=== PATIENT | female | born 1950 | race Caucasian/White ===

== ENCOUNTER 2016-08-23 07:36 | Outpatient (CLI) | payer MEDICARE, OTHER ==
[~2016-08-23] VITALS: Ht 157.5 cm; Wt 81.8 kg
--- NOTE | ~2016-08-23 | CATH ---
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 3.0 X 20 Rebel inflated to 3.22mm Interventional Recommendations DAPT X 1 month Routine post Angioseal instructions Procedure Description The patient was brought to the diagnostic cardiac catheterization-EP laboratory in the fasting, non-sedated state. Informed consent was obtained in the written and verbal form after the risks and benefits were explained. The patient had no further questions and agreed to proceed. The planned puncture-incision site(s) were shaved and prepped with ChloraPrep and draped in the usual sterile manner. Conscious sedation, supplemental oxygen, and pain control medications were delivered by a registered nurse under physician guidance. Surface ECG rhythm, blood pressure measurement, and pulse oximetry were monitored throughout the procedure. Arterial access. The access site was infiltrated with lidocaine. The vessel was entered with the Seldinger technique. A sheath was advanced into the vessel and used for catheter placement. Selective left coronary angiography. A catheter was advanced into the left coronary vessel ostium under Fluoroscopic guidance. Contrast was injected by hand. Images were obtained in multiple projections. Selective right coronary angiography. A catheter was advanced into the right coronary vessel ostium under fluoroscopic guidance. Contrast was injected by hand. Images were obtained in multiple projections. Left heart catheterization. A catheter was advanced across the aortic valve to the left ventricle under fluoroscopic guidance. Resting hemodynamics were obtained. Angioplasty and Stent Placement: A guiding catheter was used to intubate the vessel. A 0.14 wire was then used to cross the lesion. A balloon catheter was placed across the lesion and inflated. The balloon catheter was then removed. A Bare Metal Stent was placed and inflated. Post placement angiograms were performed. Arterial artery hemostasis was achieved. The patient was transferred to a regular nursing floor via cart accompanied by a nurse. The patient left the laboratory in stable condition. Diagnostic Cath Status: Elective Interventional Cath Status: Elective Procedure Procedure Type Diagnostic procedure:Angiography:, Coronary Angios /[facility] PCI procedure:Bare Metal Coronary Stent:, LAD Indications: Shortness of breath, Chest pressure and Abnormal Stress Test. The procedure was explained in detail to the patient. Risks, complications and alternative treatments were reviewed. Written consent was obtained. Medications Reviewed with Patient prior to Procedure. Angiographic Findings Dominance: Right Cardiac Arteries and Lesion Findings LMCA: Normal (0% Stenosis).Large, normal LAD: Medium. Diagonal 1 is small, patent stent Lesion on Mid LAD: Mid subsection.85% stenosis 20 mm length reduced to 0%. Pre procedure NORMA II flow was noted. Post Procedure NORMA III flow was present. The guidewire cross was successful.The lesion was diagnosed as a moderate risk lesion.Culprit lesion. Devices used - CardioDx Wire .014 x 180. Number of passes: 1. - Emerge Balloon 2.75 x 15. 1 inflation(s) to a max pressure of: 9 paige. - 3.0 x 20 Rebel Stent. 2 inflation(s) to a max pressure of: 13 paige. Lesion on 1st Diag: Proximal subsection.40% stenosis . The lesion was previously treated on 10/21/2014 with the following techniques: non drug eluting stent. This is in-stentrestenosis. LCx: Normal (0% Stenosis).Normal, medium, okay. OM 1 is medium.There is a previous stent on 1st Ob Arpita Mid subsection. RCA: Large, normal. PL and PDA are small and okay. Coronary Tree Procedure Data Procedure Date Date: 08/23/2016Start: 10:04 AMEnd: 10:51 AM Entry Locations - Retrograde Percutaneous access was performed through the Right Femoral artery (Primary location). A 6 Fr sheath was inserted. Hemostasis was successfully obtained using Angio-Seal STS PLUS ([facility] [facility]). Closure Comments: Deployed by Se AGUIRRE(R). Procedure Medications Order and Administration + + + + + !Time !Medication !Dosage !Route ! + + + + + !08/23/2016 10:00 !Versed !1 mg !I.V. ! !AM ! ! ! ! + + + + + !08/23/2016 10:03 !Fentanyl !25 mcg !I.V. ! !AM ! ! ! ! + + + + + !08/23/2016 10:11 !Oxygen !2 l/min !NC ! !AM ! ! ! ! + + + + + !08/23/2016 10:19 !Angiomax (Bivalirudin) !60 mg !I.V. bolus ! !AM !(ACC_5) ! ! ! + + + + + !08/23/2016 10:20 !Nipride !50 mcg !I.C. ! !AM ! ! ! ! + + + + + !08/23/2016 10:21 !Angiomax (Bivalirudin) !1.75 mg/kg/hr!I.V. drip ! !AM !(ACC_5) ! ! ! + + + + + !08/23/2016 10:35 !Nipride !50 mcg !I.C. ! !AM ! ! ! ! + + + + + !08/23/2016 10:35 !Brilinta (Ticagrelor) !180 mg !P.O. ! !AM !(ACC_20) ! ! ! + + + + + !08/23/2016 10:36 !Oxygen ! !NC ! !AM ! ! ! ! + + + + + !08/23/2016 10:38 !Angiomax (Bivalirudin) ! !I.V. drip ! !AM !(ACC_5) ! ! ! + + + + + Devices Used - A6 Fr. BS JL 4 Diag. Catheterwas used for:Left coronary angiography. - A6 Fr. BS JR 4 Diag. Catheterwas used for:Right coronary angiography. - A6 Fr. BS Angled Pigtail Diag. Catheterwas used for:LV Pressures. - A6 Fr. XB 3.5 Guide Catheterwas used for:LAD Intervention. Contrast Material - Isovue [id number] ml Fluoroscopy Time: Diagnostic: 9:42 minutes. Total: 9:42 minutes. Fluoroscopy Dose: Diagnostic: 2708 mGy. Total: 2708 mGy. Estimated Blood Loss: 10 ml. Additional [facility] PCI Information PCI Indication:PCI for high risk Non-STEMI or unstable angina. Medical History Performed Procedures and Imaging Results - Stress testing with SPECT MPIwas performed. Results were: Positive. Risk/Extent of ischemia was: Intermediate risk. Allergies - No known allergies. Risk Factors The patient risk factors include:prior PCI on 10/21/2016;cerebrovascular disease, last creatinine: 0.8 mg/dl, creatinine clearance: 89.21 ml/min and dyslipidemia. Admission Data Admission Date: 08/23/2016 Admission Time: 07:36 AM Admit Source: Other Insurance Payors: Medicare. Admission Medications + +------+-------+ + + + + !Medication!Dosage!Times !Last !Last !Administered !Comments ! ! ! !Per Day!Delivery !Delivery ! ! ! ! ! ! !Date !Time ! ! ! + +------+-------+ + + + + !Aspirin ! ! ! ! !Yes ! ! !(any) ! ! ! ! ! ! ! + +------+-------+ + + + + Clinical Evaluation Leading to Procedure - The patient's CAD presentation was assessed as: Unstable angina. - The patient's anginal syndrome during the past two weeks was assessed as: Class III according to the [place] Cardiovascular Society Classification System (CCS). [place] . Ejection Fraction - Method: Radionucleotide. EF%: 76. Hemodynamics Condition: Rest Estimated: Heart Rate: 49 bpm Pressures (mmHg) +-----+ + !Site !Pressure ! +-----+ + !AO !127/63 (88) ! +-----+ + !LV !135/4 ,17 ! +-----+ + !LV !137/5 ,18 ! +-----+ + !AO !132/61 (88) ! +-----+ + !LV !137/5 ,18 ! +-----+ + Valve Gradients and Areas + +---------+---------+---------+ +---------+ + !Valve !Peak !Mean !Area !Index !Flow !Source ! + +---------+---------+---------+ +---------+ + !Aortic !4 !5 ! ! ! ! ! + +---------+---------+---------+ +---------+ + !Aortic !4 !5 ! ! ! ! ! + +---------+---------+---------+ +---------+ + Shunts Oxygen Values O2 Capacity 183.6 Discharge Data Discharge Date: 08/24/2016 Hospital Status: Outpatient Signatures dtt: Edmundo Velasquez (cardio) dtd: 08/23/16 1004 Physician Self Edit
[~2016-08-23 07:36] MED LIST: ASPIRIN (CHILDR81 MG PO; B COMPLETE1 EACH PO; BRILINTA90 MG PO; COQ-10100 MG PO; CRESTOR20 MG PO; ELIQUIS5 MG PO; LEXAPRO20 MG PO; NITROSTAT 0.40.4 MG SL; OXYGEN M-15 INH; PREVACID15 MG PO; PROTONIX40 MG PO; REPATHA SU140 MG/1 M SUB-Q; TAMBOCOR100 MG PO; TYLENOL EXTRA500 MG PO; TYLENOL325 MG PO; VITAMIN D1000 UNIT PO; XANAX0.25 MG PO; ZOLOFT25 MG PO; ZYRTEC10 MG PO
--- NOTE | 2016-08-23 16:27 | NUR ---
Significant Event: A/Ox3. [id number]. P-40s. Afebrile. Room air while awake and 2L at HS. L)FA IV saline locked. R) groin cath heart cath, stent to LAD. Anigosealed. No complications. Up SBA. Possible discharge home tomorrow.
--- NOTE | 2016-08-24 04:31 | NUR ---
Significant Event: A/O x3. Afebrile. Denies pain. VSS on RA. SBP 100-130s. Hr 50-60s. Rt groin site angio sealed, c/d/i, soft non tender. Up standby assist. Follow up: Plan for discharge today
[2016-08-24 04:37] LABS: BASOPHIL % 0.4 %; EOSINOPHIL # 0.1 K/uL (0.0-0.5); EOSINOPHIL % 2.2 %; HEMATOCRIT 38.7 % (33.0-46.0); HEMOGLOBIN 12.7 g/dL (10.0-15.0); IMMATURE GRANULOCYTE % 0.2 %; LYMPHOCYTE # 1.4 K/uL (0.8-4.0); LYMPHOCYTE % 29.8 %; MCH 28.5 pg (27.0-34.0); MCHC 32.8 gm/dL (32.0-36.5); MCV 86.8 fl (83.0-98.0); MONOCYTE # 0.5 K/uL (0.0-1.0); MONOCYTE % 10.2 %; MPV 10.6 fl (9.4-12.4); NEUTROPHIL # (ANC) 2.7 K/uL (1.8-7.8); NEUTROPHIL % 57.2 %; NRBC % 0 /100WBC (0-0.00); PLATELET COUNT 157 K/uL (150-450); RBC 4.46 M/uL (3.50-5.50); RDW-CV 12.8 % (11.9-14.6); WBC 4.6 K/uL (4.0-11.0)
[2016-08-24 05:03] LABS: ALBUMIN 3.3 gm/dL (3.5-5.0); ALK PHOS 70 IU/L (33-138); ANION GAP 11.1 (10.0-19.0); AST 16 IU/L (10-40); BLOOD UREA NITROGEN 14 mg/dL (6-24); CALCIUM 8.4 mg/dL (8.5-10.5); CHLORIDE 108 mMol/L (96-110); CO2 26 mMol/L (22-32); CREATININE 0.9 mg/dL (0.5-1.1); ESTIMATED GFR (MDRD EQUATION) > 60; POTASSIUM 4.1 mMol/L (3.7-5.1); SODIUM 141 mMol/L (135-145); TOTAL BILIRUBIN 0.6 mg/dL (0.0-1.5); TOTAL PROTEIN 6.5 g/dL (6.0-8.4)
[2016-08-24 05:09] LABS: ALT 19 IU/L (12-78)
[2016-08-24] MEDS ORDERED: BRILINTA90 MG PO (08:29)
--- NOTE | 2016-08-24 10:32 | NUR ---
PATIENT GIVEN WRITTEN DISMISSAL INSTRUCTIONS INCLUDING NEW HOME MEDICATION LIST WITH INFORMATION ON NEW MEDS, PRESCRIPTIONS, FOLLOW-UP APPOINTMENT TIMES, DIET RESTRICTIONS INCLUDING HEART CALENDAR, WELL ACTIVITY RESTRICTIONS AND HOW TO CARE FOR GROIN SITE. PATIENT STATES UNDERSTANDING OF INFORMATION DISCUSSED WITH RN. PIV REMOVED FROM L) FA WITH TICO APPLIED. TELEMETRY DC'D AND TAKEN TO FRONT OF [facility] VIA WHEELCHAIR ACCOMPANIED BY RN, DAUGHTER AND BELONGINGS AT 0905.
== END 2016-08-24 09:05 | disposition disaster alternative care site (69) ==
LOC: GPOC 07:36 → GPCU 07:36 → GPOC 13:00
PROVIDERS: Internal Medicine Interventional Cardiology
DX: I25.10 Atherosclerotic heart disease of native coronary artery without angina pectoris (principal); I48.91 Unspecified atrial fibrillation; Z79.01 Long term (current) use of anticoagulants; Z79.899 Other long term (current) drug therapy; Q21.1 Atrial septal defect; E78.5 Hyperlipidemia, unspecified; G47.33 Obstructive sleep apnea (adult) (pediatric)
CPT/HCPCS: C1725; C1760; C1769; C1876; C1887; J0583; J1644; J2001; J2250; J3010; J7030; J7060